=== PATIENT | female | born 1965 | race Two or more races ===

== ENCOUNTER 2024-03-21 12:38 | Emergency (ER) | payer BC ==
[~2024-03-21] VITALS: Ht 165.1 cm; Wt 70.8 kg
[2024-03-21 12:54] VITALS: BP 139/80; TEMP 98.3; O2SAT 98
[2024-03-21] MEDS ORDERED: SULF1TAB48 PO (14:12)
[2024-03-21] MEDS ORDERED: CEPH-570 PO (14:12)
== END 2024-03-21 14:45 | disposition home or self-care (01) ==
LOC: ER 12:59
DX: T81.31XA Disruption of external operation (surgical) wound, not elsewhere classified, initial encounter (principal); R53.83 Other fatigue; I10 Essential (primary) hypertension; Z60.2 Problems related to living alone; Y83.8 Other surgical procedures as the cause of abnormal reaction of the patient, or of later complication, without mention of misadventure at the time of the procedure; Y92.89 Other specified places as the place of occurrence of the external cause